=== PATIENT | male | born 1965 | race Caucasian/White ===

== ENCOUNTER 2020-09-04 06:10 | Day surgery (SDC) | payer OTHER ==
[~2020-09-04] VITALS: Ht 190.5 cm; Wt 105.0 kg
[~2020-09-04 06:10] MED LIST: BUPRENORPHINE HC8 MG SL; CITALOPRAM HBR40 MG PO; CYCLOBENZAPRINE10 MG PO; HYDROCHLOROTH12.5 MG PO; LISINOPRIL20 MG PO; NORCO 10-325 T1 EACH PO; PEPCID40 MG PO; PRILOSEC20 MG PO; PROAIR HFA8.5 GM INH; ZANTAC300 MG PO
--- NOTE | 2020-09-04 08:23 | NUR ---
09/04/20 0835 Story,Aicha 0820 PT AWAKE AND TALKATIVE TO STAFF, BITE BLOCK REMOVED BY RN WITHOUT DIFF. RAISES HEAD OFF PILLOW AND FALLS ASLEEP EASILY. NO COMPLAINTS
--- NOTE | 2020-09-04 08:41 | NUR ---
CHECKED ON PT-HE WAS ASLEEP. DID NOT DISTURB. WILL FOLLOW NEEDED
--- NOTE | 2020-09-05 07:58 | OR ---
[facility] [address] [place], [place] [address] Signed DATE OF OPERATION: 09/04/2020 SURGEON: Demarcus Willingham MD PREOPERATIVE DIAGNOSES: 1. Proximal esophageal dysphagia. 2. Smoking. 3. Hoarse raspy voice. 4. Gastroesophageal reflux disease. 5. Father with colon cancer in his 80s. POSTOPERATIVE DIAGNOSES: 1. Vocal cord polyp. 2. Mild gastritis. 3. Moderate external hemorrhoids. 4. Small internal anal skin tag x1. PROCEDURE: 1. EGD with CLOtest and biopsies of the antrum and GE junction. 2. Colonoscopy with hot biopsy. ESTIMATED BLOOD LOSS: None. INDICATIONS: Harjeet is a 55-year-old gentleman asked to see me for upper and lower endoscopy. He has been a long-time smoker and has a hoarse raspy voice. He also is known to have acid reflux. However, he has developed proximal esophageal dysphagia. In addition, he told me his father was diagnosed with stage IV colon cancer in his late 80s. He has never had a previous colonoscopy. He has no lower GI complaints. He has been taking medicine for the acid reflux for years. I gave Harjeet a pamphlet on both upper and lower endoscopy in the office. I reviewed the two tests with him. He understands there is risk including, but not limited to gas bloating, crampy abdominal pain, bleeding, perforation requiring surgery, and missed diagnosis. He also understands the need for IV conscious sedation. Given his significant past medical history as well as his need for buprenorphine as well as cyclobenzaprine and citalopram, we asked that an anesthesia provider to help us with increased monitoring and sedation with propofol. That proved to be a calero decision. He had expressed understanding and wished to proceed. PROCEDURE NOTE: Electronically Signed By: DEMARCUS WILLINGHAM MD 09/05/20 0758 PATIENT NAME: HARJEET CONKLIN OPERATIVE REPORT DATE OF : 67 REPORT #: [id number] PHYSICIAN: DEMARCUS WILLINGHAM MD PCP: LONNIE BEAN MD REPORT IS CONFIDENTIAL AND NOT TO BE RELEASED WITHOUT AUTHORIZATION [facility] [address] [place], [place] [address] Signed Harjeet was taken into our endoscopy suite and placed in the supine semi-recumbent position. The posterior oropharynx was anesthetized with lidocaine spray. A bite block was utilized for the case. He was given monitored anesthesia care by our nurse insulation engineman. The adult gastroscope was introduced and we could see a moderately large vocal cord polyp. The scope was passed down the esophagus out into the third portion of the duodenum without difficulty. The duodenum and pyloric channel were unremarkable. The stomach showed mild erythematous changes. We took a biopsy of the antrum for CLOtest as well as pathologic review. Upon retroflexion of scope, we really could not see an obvious hiatal hernia. The scope was withdrawn up to the area of the GE junction, which was compliant without stricture. He did have some inflammatory changes along the Z-line, so we took a biopsy from that area. There was no Watters's mucosa, no distal esophagitis. We did not see any irritation or stricture in the middle or upper esophagus. After this, the gas was suctioned out and the gastroscope removed. Harjeet tolerated the procedure quite well. We had taken pictures throughout for photodocumentation. Harjeet was then rotated into the left lateral decubitus position. A digital rectal exam was performed and he does have moderate external hemorrhoids. The adult colonoscope was then introduced and advanced all around into the cecum under direct visualization of camera without difficulty. His prep was quite good. We could easily see the appendiceal orifice and ileocecal valve. The scope had been withdrawn. We found no pathology throughout his entire colon or rectum. Upon retroflexion of scope, he has just a single small internal anal skin tag. After this, the gas was suctioned out and the colonoscope removed. Harjeet tolerated the procedure quite well. RECOMMENDATIONS: I will see Harjeet back in my office in 7 to 14 days to review his results. He will need to see the Ear, Nose, and Throat surgeon for his vocal cord polyp. Demarcus Willingham MD ALB/MODL /[id number] cc: Demarcus Willingham MD Electronically Signed By: DEMARCUS WILLINGHAM MD 09/05/20 0758 PATIENT NAME: HARJEET CONKLIN OPERATIVE REPORT DATE OF : 67 REPORT #: [id number] PHYSICIAN: DEMARCUS WILLINGHAM MD PCP: LONNIE BEAN MD REPORT IS CONFIDENTIAL AND NOT TO BE RELEASED WITHOUT AUTHORIZATION [address] [address] Signed Lonnie Bean MD Copies: DEMARCUS WILLINGHAM MD, MALCOLM MD ~ Electronically Signed By: DEMARCUS WILLINGHAM MD 09/05/20 0758 PATIENT NAME: HARJEET CONKLIN OPERATIVE REPORT DATE OF : 67 REPORT #: [id number] PHYSICIAN: DEMARCUS WILLINGHAM MD PCP: LONNIE BEAN MD REPORT IS CONFIDENTIAL AND NOT TO BE RELEASED WITHOUT AUTHORIZATION
--- NOTE | 2020-09-08 15:18 | PATH ---
[facility] [address] [place], [place] [address] Signed SPECIMEN(S): A ANTRUM/PYLORUS SPECIMEN(S): B GE JUNCTION SPECIMEN SOURCE: A. ANTRUM/PYLORUS B. GE JUNCTION CLINICAL HISTORY: Preop: Proximal esophageal dysphagia, acid reflux, colon screening, family history of colon cancer. Postop: Vocal cord polyp, mild gastritis, external hemorrhoids, skin tag MICROSCOPIC DESCRIPTION: Histologic sections of all submitted blocks are examined by light microscopy. These findings, together with the gross examination, support the pathologic diagnosis. FINAL PATHOLOGIC DIAGNOSIS: A. Stomach, antrum/pylorus, biopsy: - Antral mucosa with no histopathologic abnormality. - Negative for Helicobacter organisms on HE stain. - Negative for dysplasia or malignancy. B. Gastroesophageal junction, biopsy: - Squamocolumnar junctional mucosa with reactive changes and focal acute inflammation, suggestive of reflux esophagitis. - Negative for intestinal metaplasia, dysplasia, or malignancy. NAL:cml:C2NR GROSS DESCRIPTION: Two specimens are received in two containers, labeled "Harjeet Elise." A. The specimen, labeled "Harjeet Elise, #1," and designated on the requisition "antrum/pylorus biopsy," is received in formalin and consists of one elder soft tissue fragment that measures 0.4 cm in greatest dimension. The specimen is entirely submitted in cassette (A1). B. The specimen, labeled "Gosia Harjeet, #2," and designated on the requisition "GE junction biopsy," is received in formalin and consists of one elder soft tissue fragment that measures 0.3 cm in greatest dimension. The specimen is entirely submitted in cassette (B1). FB (under the direct supervision of a pathologist) The Gross Description was prepared using a voice recognition system. The report was reviewed for accuracy; however, sound-alike word errors, addition and/or deletions may occur. If there is any PATIENT NAME: HARJEET ELISE PATHOLOGY DATE OF : 67 REPORT #: [id number] PHYSICIAN: SUZANNE PATHOLOGY PCP: VENKAT MARADIAGA MD REPORT IS CONFIDENTIAL AND NOT TO BE RELEASED WITHOUT AUTHORIZATION [facility] [address] [place], [place] [address] Signed question about this report, please contact Client Services. PERFORMING LABORATORY: The technical component was performed by [employer] [address] [address] (Aircraft Time Clerk: Sarah Cavanaugh MD; CLIA# [id number]). [facility], [address] [address] (CLIA# [id number]). Diagnostician: Nila Arroyo MD Pathologist Electronically Signed 09/08/2020 Copies: ~ PATIENT NAME: HARJEET ELISE PATHOLOGY DATE OF : 67 REPORT #: [id number] PHYSICIAN: SUZANNE RODRIGUEZ PCP: VENKAT MARADIAGA MD REPORT IS CONFIDENTIAL AND NOT TO BE RELEASED WITHOUT AUTHORIZATION
== END 2020-09-04 09:05 | disposition home or self-care (01) ==
LOC: OPS 06:10 → DS 06:10 → OPS 06:45 → DS 06:45 → OPS 09:05
PROVIDERS: ATTEND Colon & Rectal Surgery
PROC: 0DBH8ZX Excision of Cecum, Via Natural or Artificial Opening Endoscopic, Diagnostic (ICD-10-PCS; 2020-09-04)
PROC: 0DBP8ZX Excision of Rectum, Via Natural or Artificial Opening Endoscopic, Diagnostic (ICD-10-PCS; 2020-09-04)
PROC: 0DBC8ZX Excision of Ileocecal Valve, Via Natural or Artificial Opening Endoscopic, Diagnostic (ICD-10-PCS; 2020-09-04)
PROC: 0DB48ZX Excision of Esophagogastric Junction, Via Natural or Artificial Opening Endoscopic, Diagnostic (ICD-10-PCS; principal; 2020-09-04 06:45)
PROC: 0DB78ZX Excision of Stomach, Pylorus, Via Natural or Artificial Opening Endoscopic, Diagnostic (ICD-10-PCS; 2020-09-04 06:45)
DX: J38.1 Polyp of vocal cord and larynx (principal); R13.19 Other dysphagia; K21.9 Gastro-esophageal reflux disease without esophagitis; K64.4 Residual hemorrhoidal skin tags; I10 Essential (primary) hypertension; J45.909 Unspecified asthma, uncomplicated; F17.210 Nicotine dependence, cigarettes, uncomplicated; Z80.0 Family history of malignant neoplasm of digestive organs
CPT/HCPCS: 86677; J2001; J2704; J7121

== ENCOUNTER 2023-03-28 09:38 | Emergency (ER) | payer OTHER ==
[~2023-03-28] VITALS: Ht 190.5 cm; Wt 104.8 kg
[2023-03-28] MEDS ORDERED: LISINOPRIL40 MG PO ×2 (09:52→11:05)
[2023-03-28] MEDS ORDERED: FAMOTIDINE40 MG PO ×2 (09:52→11:05)
[2023-03-28] MEDS ORDERED: HYDROCHLOROTHIA25 MG PO ×2 (09:53→11:05)
[2023-03-28] MEDS ORDERED: CITALOPRAM HBR40 MG PO (11:05)
[2023-03-28] MEDS ORDERED: VENTOLIN HFA18 GM INH (11:05)
[2023-03-28 11:53] VITALS: BP 150/103
== END 2023-03-28 11:48 | disposition home or self-care (01) ==
LOC: ED 09:38
DX: M79.671 Pain in right foot (principal); Z76.0 Encounter for issue of repeat prescription; M67.873 Other specified disorders of tendon, right ankle and foot; I10 Essential (primary) hypertension; J45.909 Unspecified asthma, uncomplicated; F17.200 Nicotine dependence, unspecified, uncomplicated; Z79.899 Other long term (current) drug therapy; F32.A Depression, unspecified; F41.9 Anxiety disorder, unspecified
CPT/HCPCS: 73630

== ENCOUNTER 2023-09-16 15:33 | Emergency (ER) | payer MEDICAID ==
[~2023-09-16] VITALS: Ht 190.5 cm; Wt 98.0 kg
[~2023-09-16 15:33] MED LIST changes: +BACTRIM DS TAB1 EACH PO; +BUPRENORPHIN-N1 EACH SL; +FAMOTIDINE40 MG PO; +HYDROCHLOROTHIA25 MG PO; +LISINOPRIL40 MG PO; +VENTOLIN HFA18 GM INH
--- OUTSIDE RECORDS SUMMARY | 2023-09-16 15:36 | XMS ---
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 ([facility]) PHONE: [phone] Sybil has no Care Guidelines for this patient. Jaime VISIT COUNT (12 MO.) [address] [place] [address] Janet Vera M.C. TOTAL 5 NOTE: Visits indicate total known visits. ED/UCC VISIT TRACKING (12 MO.) 09/16/2023 15:34 MATHEW Ramos [place] TYPE: Emergency COMPLAINT: - WOUND CHECK 09/12/2023 07:47 MATHEW Ramos [place] TYPE: Emergency COMPLAINT: - SPIDER BITE DIAGNOSES: - Cutaneous abscess of abdominal wall - Essential (primary) hypertension - Nicotine dependence, unspecified, uncomplicated - Other monitoring and evaluation advisor (current) drug therapy - Right lower quadrant pain - Unspecified asthma, uncomplicated 09/11/2023 16:00 MATHEW Ramos [place] TYPE: Emergency COMPLAINT: - POSS INFECTION IN GROIN 07/13/2023 20:20 Janet BARROW TYPE: Emergency DIAGNOSES: 1. Encounter for issue of repeat prescription 1. RA 5 Needs med refill 2. RA 5 Needs med refill 2. Refill request 3. Refill request 03/28/2023 09:40 MATHEW Wright TYPE: Emergency COMPLAINT: - MEDICATION REFILL DIAGNOSES: - Anxiety disorder, unspecified - Depression, unspecified - Encounter for issue of repeat prescription - Essential (primary) hypertension - Nicotine dependence, unspecified, uncomplicated - Other fpc (current) drug therapy - Other specified disorders of tendon, right ankle and foot - Pain in right foot - Unspecified asthma, uncomplicated INPATIENT VISIT TRACKING (12 MO.) No inpatient visits to display in this time frame [email or web address]
[2023-09-16 17:23] VITALS: BP 104/83
== END 2023-09-16 17:24 | disposition home or self-care (01) ==
LOC: ED 15:33
DX: L02.214 Cutaneous abscess of groin (principal); I10 Essential (primary) hypertension; F17.200 Nicotine dependence, unspecified, uncomplicated; Z79.899 Other long term (current) drug therapy
CPT/HCPCS: 99282

== ENCOUNTER 2024-07-23 10:39 | Emergency (ER) | payer OTHER ==
[~2024-07-23] VITALS: Ht 190.5 cm; Wt 103.9 kg
[2024-07-23] MEDS ORDERED: LISINOPRIL-HCT1 EACH PO (12:40)
[2024-07-23] MEDS ORDERED: CEPHALEXIN500 M1 PO (13:30)
[2024-07-23] MEDS ORDERED: BACTRIM DS TAB1 EACH PO (13:30)
[2024-07-23] MEDS ORDERED: VENTOLIN HFA18 GM INH (13:30)
[2024-07-23 13:53] VITALS: BP 148/93
== END 2024-07-23 13:54 | disposition home or self-care (01) ==
LOC: ED 10:39
DX: H60.02 Abscess of left external ear (principal); I10 Essential (primary) hypertension; J45.909 Unspecified asthma, uncomplicated; F17.200 Nicotine dependence, unspecified, uncomplicated; Z79.899 Other long term (current) drug therapy
CPT/HCPCS: 10060; 99282-25